=== PATIENT | male | born 1985 | race Caucasian/White ===

== ENCOUNTER 2020-05-16 00:13 | Emergency (ER) | payer BC ==
[2020-05-16 00:28] VITALS: BP 112/75; PULSE 82; RESP 18; TEMP 97.5
[2020-05-16] MEDS ORDERED: DIPH,PERTUS(ACELL)TETVAC-LF 0.5 ML VIAL IM ONE (00:34)
[2020-05-16] MEDS ORDERED: MORPHINE SULFATE 4 MG/ML SYRINGE IVP STA (00:34)
[2020-05-16] MEDS ORDERED: ONDANSETRON 4 MG/2 ML VIAL IVP STA (00:34)
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
[2020-05-16 01:01] LABS: Basophils # (A) 0.1 k/uL (0-0.2); Basophils % (A) 1 %; Eosinophils # (A) 0.4 k/uL (0-0.7); Eosinophils % (A) 3 %; HCT 42.4 % (39.0-53.0); HGB 14.6 gm/dL (13.0-17.5); Lymphocytes # (A) 3.3 k/uL (1.0-4.8); Lymphocytes % (A) 27 %; MCH 32.7 pg (25.0-35.0); MCHC 34.5 g/dL (31.0-37.0); MCV 94.7 fL (80.0-100.0); Monocytes # (A) 0.7 k/uL (0-1.0); Monocytes % (A) 6 %; Neutrophils # (A) 7.6 k/uL (1.3-7.7); Neutrophils % (A) 62 %; Platelet Count 326 k/uL (150-450); RBC 4.48 m/uL (4.30-5.90); RDW 12.8 % (11.5-15.5); WBC 12.4 k/uL (3.8-10.6)
[2020-05-16 01:06] LABS: ALT 18 U/L (4-49); AST 22 U/L (17-59); African American GFR (CKD) >90 (>60 ml/min/1.73 sqM); Albumin 4.6 g/dL (3.5-5.0); Alcohol 77 mg/dL; Alkaline Phosphatase 61 U/L (38-126); Amylase 74 U/L (30-110); Anion Gap 11 mmol/L; Blood Urea Nitrogen 12 mg/dL (9-20); Carbon Dioxide 24 mmol/L (22-30); Chloride 104 mmol/L (98-107); Glucose 107 mg/dL (74-99); Non-African American GFR(CKD) >90 (>60 ml/min/1.73 sqM); Sodium 139 mmol/L (137-145); Total Bilirubin 0.2 mg/dL (0.2-1.3); Total Protein 7.5 g/dL (6.3-8.2)
[2020-05-16] MEDS ORDERED: HYDROmorphone 1 MG/ML 1 ML SYRINGE IVP STA (01:14)
[2020-05-16 01:15] LABS: Creatine Kinase 92 U/L (55-170)
[2020-05-16 01:19] LABS: INR 0.9 (<1.2); Prothrombin Time 9.7 sec (9.0-12.0)
[2020-05-16 01:21] LABS: Partial Thromboplastin Time 20.8 sec (22.0-30.0)
[2020-05-16 01:28] LABS: Troponin I <0.012 ng/mL (0.000-0.034)
[2020-05-16] MEDS ORDERED: HYDROmorphone 0.5 MG/0.5 ML SYRINGE IVP STA (02:04)
== END 2020-05-16 03:08 | disposition other institution (70) ==
LOC: EC 00:13
DX: T23.331A Burn of third degree of multiple right fingers (nail), not including thumb, initial encounter (principal); T23.251A Burn of second degree of right palm, initial encounter; Z87.891 Personal history of nicotine dependence; Z23 Encounter for immunization; W01.0XXA Fall on same level from slipping, tripping and stumbling without subsequent striking against object, initial encounter; X08.8XXA Exposure to other specified smoke, fire and flames, initial encounter
CPT/HCPCS: 90471; 96365; 96375 ×3; 96376; 99285; 36415; 86900; 86901; 80053; 82150; 82550; 82553; 83605; 83690; 84484; 85025; 85610; 85730; 86850; 80320; 90715; J2270; J2405; J0690; J1170 ×2

== ENCOUNTER 2022-06-07 09:55 | Emergency (ER) | payer BC ==
[2022-06-07 10:25] VITALS: BP 110/75; PULSE 70; RESP 18; TEMP 98
[2022-06-07] MEDS ORDERED: ORPHENADRINE 30 MG/ML 2 ML VIAL IM STA (10:31)
[2022-06-07] MEDS ORDERED: KETOROLAC 15 MG/ML 1 ML VIAL IM STA (10:31)
[2022-06-07] MEDS ORDERED: DEXAMETHASONE SOD PHOSPHATE 10 MG/ML 1 ML VIAL IM STA (10:31)
[2022-06-07] MEDS ORDERED: HYDROcodone/APAP 7.5-325MG 1 EACH TAB PO ONE (11:22)
[2022-06-07 12:10] LABS: Appearance,Urine Clear (Clear); Bilirubin,Urine Negative (Negative); Blood,Urine Negative (Negative); Color,Urine Light Yellow; Glucose,Urine (UA) Negative (Negative); Ketones,Urine Negative (Negative); Leukocyte Esterase,Urine Negative (Negative); Nitrite,Urine Negative (Negative); Protein,Urine Negative (Negative); Specific Gravity,Urine 1.013 (1.001-1.035); Urobilinogen,Urine <2.0 mg/dL (<2.0)
--- NOTE | 2022-06-07 12:11 | ED ---
Back Pain HPI - General Chief Complaint: Back Pain/Injury Stated Complaint: sciatica pain Time Seen by Provider: 06/07/22 10:26 Source: patient Limitations: no limitations - History of Present Illness Initial Comments: Patient is a 36-year-old male presenting with chief complaint of back pain. Patient states that he has had chronic issues with his sciatic nerve, he is chronic back pain located on the left side that shoots down his leg, however yesterday after attending physical therapy the pain has gotten worse. Patient has been taking naproxen at home with no pain relief. He denies any loss of bowel or bladder control or saddle paresthesia. He denies any lower extremity numbness, tingling, weakness. He denies any dysuria, hematuria, urgency, frequency, flank pain. - Related Data Previous Rx's Medication Instructions Recorded Cyclobenzaprine [Flexeril] 10 mg PO TID PRN #20 tab 06/07/22 Allergies Allergy/AdvReac Type Severity Reaction Status Date / Time No Known Allergies Allergy Verified 06/07/22 10:22 Review of Systems ROS Statement: Those systems with pertinent positive or pertinent negative responses have been documented in the HPI. ROS Other: All systems not noted in ROS Statement are negative. Past Medical History Past Medical History: No Reported History Additional Past Medical History / Comment(s): sciatica, chrohns History of Any Multi-Drug Resistant Organisms: None Reported Past Surgical History: No Surgical Hx Reported Past Psychological History: No Psychological Hx Reported Smoking Status: Never smoker Past Alcohol Use History: Occasional Past Drug Use History: Marijuana General Exam Limitations: no limitations General appearance: alert, in no apparent distress Head exam: Present: atraumatic, normocephalic, normal inspection Eye exam: Present: normal appearance, EOMI. Absent: scleral icterus, periorbital swelling Neck exam: Present: normal inspection Back exam: Present: normal inspection, paraspinal tenderness, vertebral tenderness (Patient endorses history of herniated disc) Neurological exam: Present: alert, oriented X3, CN II-XII intact Psychiatric exam: Present: normal affect, normal mood Skin exam: Present: warm, dry, intact, normal color. Absent: rash Course Vital Signs 06/07/22 10:22 Temperature 98 F Pulse Rate 70 Respiratory 18 Rate Blood Pressure 110/75 O2 Sat by Pulse 98 Oximetry Medical Decision Making - Medical Decision Making Patient is a 76-year-old male presenting with chief complaint of back pain. Located primarily on the left side with radiation down his leg, he states he feels consistent with his sciatica pain, however the pain is more intense at this time. On examination there is paraspinal muscle tenderness and some vertebral tenderness, patient endorses history of herniated disc. Urine is unremarkable. Lumbar spine x-ray shows no acute osseous abnormality. Patient is given pain medication. Instructed to follow-up with his PCP in one to 2 days. Report back to ER with any new or worsening symptoms. Discussed return parameters answered all questions. Patient conveyed verbal understanding and agreed to the plan. My attending is Dr. Florez. - Lab Data Lab Results 06/07/22 Range/Units 11:31 Urine Color Light Yellow Urine Appearance Clear (Clear) Urine pH 7.0 (5.0-8.0) Ur Specific [place] 1.013 (1.001-1.035) Urine Protein Negative (Negative) Urine Glucose (UA) Negative (Negative) Urine Ketones Negative (Negative) Urine Blood Negative (Negative) Urine Nitrite Negative (Negative) Urine Bilirubin Negative (Negative) Urine Urobilinogen <2.0 (<2.0) mg/dL Ur Leukocyte Esterase Negative (Negative) Disposition Clinical Impression: Strain of lumbar region Disposition: HOME SELF-CARE Condition: Good Instructions (If sedation given, give patient instructions): Acute Low Back Pain (ED), Lower Back Exercises (ED) Additional Instructions: Follow-up with PCP in one to 2 days. Report back to ER with any new or worsening symptoms. Take medication as prescribed. Medication may cause peyton wsiness, do not take before driving or operating heavy machinery. Prescriptions: Cyclobenzaprine [Flexeril] 10 mg PO TID PRN #20 tab PRN Reason: Spasms Is patient prescribed a controlled substance at d/c from ED?: No Referrals: None,Stated [Primary Care Provider] - 1-2 days Time of Disposition: 13:37
--- NOTE | 2022-06-07 13:29 | XR ---
EXAMINATION TYPE: XR lumbar spine 2 or 3V DATE OF EXAM: 06/07/2022 COMPARISON: None HISTORY: Back pain TECHNIQUE: 3 view lumbar spine FINDINGS: There is a scoliosis present convexity to the left. There are 5 lumbar-type vertebral leila s. The pedicles are intact. The body heights are preserved. Disc heights are preserved. There is stra ightening lumbar spine sagittal plane related to patient positioning or muscle spasm. IMPRESSION: 1. Straightening of the lumbar spine sagittal plane scoliosis and side bending towards the left comp juanita. 2. No acute osseous abnormality is radiographically evident. 3. MRI be performed if the additional evaluation soft tissues would be of benefit.
[2022-06-07] MEDS ORDERED: traMADol 50 MG TAB PO STA (13:34)
[2022-06-07] MEDS ORDERED: ACET/COD 300 MG/30 MG STARTER PACK 6 TAB BTL PO STA (13:36)
== END 2022-06-07 13:55 | disposition home or self-care (01) ==
LOC: EC 09:55
DX: S39.012A Strain of muscle, fascia and tendon of lower back, initial encounter (principal); X58.XXXA Exposure to other specified factors, initial encounter
CPT/HCPCS: 81003; 72100; 99283; 96372; J1100; J2360; J1885